=== PATIENT | female | born 1995 | race Caucasian/White ===

== ENCOUNTER → 2020-11-18 03:01 | Outpatient (CLI) | payer OTHER, SELFPAY ==
[2020-11-18 18:14] LABS: SARS-CoV-2 RNA PCR Negative
== END ==
PROVIDERS: Visit Provider Student in an Organized Health Care Education/Training Program
DX: Z01.812 Encounter for preprocedural laboratory examination (principal); Z20.822 Contact with and (suspected) exposure to COVID-19
CPT/HCPCS: C9803; U0003; U0005

== ENCOUNTER 2020-11-21 01:42 | Day surgery (SDC) | payer OTHER, SELFPAY ==
[2020-11-18 09:02] VITALS: BMI 25.7
--- NOTE | 2020-11-21 07:24 | PM.IMHP ---
H&P: HPI History of Present Illness Date/Time: 11/21/20 07:24 25 year old female who presents for hysteroscopic removal of IUD. Pt has had her IUD in for 3 years. Her and her would like to conceive so she presented to the office for removal. Upon attempted removal in office, the IUD strings detached from the device. Pt was then sent for pelvic US which confirmed the IUD within the lower uterine segment. A second attempt at in office removal was also unsuccessful. Decision was made to proceed with operative hysteroscopy. Chief Complaint: IUD contraception in place unsuccessful removal of IUD Review of Systems Cardiovascular: Cardiovascular: Denies chest pain, Denies leg edema, Denies palpitations, Denies dyspnea and Denies dyspnea on exertion Respiratory: Respiratory: Denies cough, Denies dyspnea and Denies dyspnea on exertion Gastrointestinal: Gastrointestinal: Denies abdominal pain, Denies constipation, Denies diarrhea, Denies nausea and Denies vomiting Genitourinary: Genitourinary: Denies hematuria, Denies urinary frequency, Denies dysuria, Denies pelvic pain, Denies urinary incontinence and Denies vaginal discharge Neurologic: Reports system reviewed and no additional complaints, except as documented Psychiatric: Psychiatric: Reports no additional psychiatric complaints Endocrine: Endocrine: Denies palpitations [facility] Past Medical History Medical History (Updated 11/21/20 @ 07:28 by Valerio Dominguez MD) BMI 25.0-25.9,adult Encounter to establish care History of renal stone On residential drug therapy Post depression Routine gynecological examination Social History Social History (Updated 10/25/19 @ 10:56 by Anne Marie Lopez [facility]) Smoking status: Former smoker Second hand tobacco smoke exposure: No Additional smoking assessment comments: OCCASSIONAL IN [employer] Alcohol intake: current Drinks per week: 5 Substance use: never Substance use type: does not use Living arrangements: with family Gender identity (if verbalized by the patient): Female Spiritual care concerns: No Meds Home Medications and Allergies Home Medications Medication Instructions Recorded Confirmed Type ascorbate calcium (vitamin C) 500 500 mg PO DAILY 10/25/19 11/18/20 History mg tablet lactobacillus combination no.8 3 3,000 mmu cells PO DAILY 10/25/19 11/18/20 History billion cell capsule lysine 500 mg tablet 500 mg PO DAILY 10/25/19 11/18/20 History vitamins no.119-iron 1 tablet PO DAILY 10/25/19 11/18/20 History fumarate 29 mg-folic acid 1 mg tablet Allergies Allergy/AdvReac Type Severity Reaction Status Date / Time No Known Allergies Allergy Unknown Verified 11/18/20 09:01 Exam Const: General: no acute distress Eyes: EOM: EOMs intact bilaterally Neck: Neck: supple Thyroid: thyroid normal Chest: Breast/axilla inspection: normal inspection of the breasts Breast/axilla palpation: normal palpation of the breasts, normal palpation of the axillae and no axillary lymphadenopathy Resp: Effort & Inspection: normal respiratory effort Auscultation: clear to auscultation bilaterally Cardio: Rate: regular rate Rhythm: regular rhythm GI: Inspection: non-distended GI Palp: Yes Soft to palpation, No Tenderness to palpation present (GI) and No Guarding due to palpation present (GI) Auscultation: normal bowel sounds : General: No bladder normal to palpation External Female Exam: normal external appearance Speculum Exam - Vagina: normal vaginal discharge and No vaginal bleeding Speculum Exam - Cervix: nontender Bimanual exam- vagina & uterus: No bladder normal to palpation and No Cervical tenderness present OB/external & speculum: No vaginal bleeding Skin: General skin exam: normal color and no rashes or lesions noted Neuro: Cognition (Neuro): normal cognition Speech: normal speech Extrem: General: normal to inspection and no edema Psych: Mental Status: me
--- NOTE | 2020-11-21 07:31 | WPDHPUPDATE1 ---
History and Physical Update Update Date/Time: 11/21/20 07:31 History and Physical has been reviewed, including an updated exam of the patient. There are NO changes in the patient's condition. Risks, benefits, and alternatives have been discussed and questions answered. Patient agrees to proceed with procedure.
[2020-11-21 10:45] VITALS: BP 97/61; PULSE 79; RESP 20; TEMP 36.2; O2SAT 98
[2020-11-21] MEDS: LACTATED RINGERS 1,000 ML 30 ML IV CONT (11:40)
[2020-11-21] MEDS: ACETAMINOPHEN 500 MG TABLET 1000 MG PO (11:46)
[2020-11-21 11:54] LABS: Hemoglobin 13.8 g/dL (12.0-15.0)
--- NOTE | 2020-11-21 12:14 | WPDANESEPPF ---
Anes - Initial Pre Proc Eval Procedure: Operation Date: 11/21/20 12:45 Proposed Procedures p Hysteroscopy, Removal Of Intrauterine Device - Valerio Dominguez MD Date/Time: 11/21/20 12:14 Surgeon: Valerio Dominguez MD Pre Op Diagnosis: strings detached from IUD Patient Data Age: 25 Gender: F Height: 5 ft 5 in Weight: 72.4 kg Last Vital Signs Temp 36.2 C L 11/21/20 10:45 Pulse 79 11/21/20 10:45 Resp 20 11/21/20 10:45 BP 97/61 L 11/21/20 10:45 Pulse Ox 98 11/21/20 10:45 Allergies Allergy/AdvReac Type Severity Reaction Status Date / Time No Known Allergies Allergy Unknown Verified 11/21/20 11:28 Home Medications Medication Instructions Recorded Confirmed Type ascorbate calcium (vitamin C) 500 500 mg PO DAILY 10/25/19 11/21/20 History mg tablet lactobacillus combination no.8 3 3,000 mmu cells PO DAILY 10/25/19 11/21/20 History billion cell capsule lysine 500 mg tablet 500 mg PO DAILY 10/25/19 11/21/20 History vitamins no.119-iron 1 tablet PO DAILY 10/25/19 11/21/20 History fumarate 29 mg-folic acid 1 mg tablet alprazolam 2 mg PO ONCE 11/21/20 11/21/20 History ibuprofen 800 mg PO Q8-10H 11/21/20 11/21/20 History ondansetron HCl 4 mg PO Q6H PRN 11/21/20 11/21/20 History oxycodone-acetaminophen 1 tablet PO Q6H PRN 11/21/20 11/21/20 History Laboratory Tests 11/21/20 11:35 Hgb 13.8 g/dL g/dL (12.0-15.0) Hct 42.0 % % (37.0-47.0) Patient hx anesthesia problems: none Family hx anesthesia problems: none PMFSH Past Medical History Medical History BMI 25.0-25.9,adult Encounter to establish care History of renal stone On assisted drug therapy Post depression Routine gynecological examination Social History Social History Smoking status: Former smoker Second hand tobacco smoke exposure: No Additional smoking assessment comments: OCCASSIONAL IN [employer] Alcohol intake: current Drinks per week: 5 Substance use: never Substance use type: does not use Living arrangements: with family Gender identity (if verbalized by the patient): Female Spiritual care concerns: No Anes - Eval Final PreProcedure Day of Procedure 11/21/20 12:14 Patient weight: normal Heart: regular rate and rhythm Lungs: clear to auscultation Airway: Mallampati scale Last oral intake: >/= 8 hours ASA classification: I Emergent: no Anesthetic plan: proceed Anesthesia type and monitoring: general GIVS and standard monitoring Informed Consent: The patient's anesthetic plan and its attendant risks and benefits were discussed with the patient/family/POA. Questions were solicited and answers provided to the satisfaction of the patient/family/POA.
--- NOTE | 2020-11-21 12:38 | SUR.OPER ---
hysteroscope IN-650 OUT-650
--- NOTE | 2020-11-21 12:43 | PM.PROC ---
Procedure Note - Detailed Date of procedure: 11/21/20 Pre-op diagnosis: strings detached from IUD IUD removal unsuccessful Post-op diagnosis: same Procedure performed: Hysteroscopy Dilation and curettage Description of procedure: The patient was taken to the OR and general anesthesia induced. She was prepped and draped in yellow fin stirrups with support of the back and bilateral lower extremities. I/O catheterization performed of the bladder. Speculum was placed for visualization of the cervix. Infiltration with 1% lidocaine at the 3 and 9 o'clock cervical positions was performed. A single tooth tenaculum was placed on the anterior lip of the cervix. The cervix was dilated with sequential Steffanie dilators. Hysteroscopy, using a normal saline medium, was performed and showed the retained IUD lodged within the endocervical canal. The long arm of the IUD was lodged in the patients left cervix. Hysteroscopic graspers were placed through the operative hysteroscope. The IUD was grasped on the long arm of the IUD. The IUD was removed with gentle pressure and under direct visualization of the hysteroscope. The IUD was examined and was noted to be intact in its entirety. The hysteroscope was re-introduced to do a survery of the endometrial cavity. A endometrial polyp was noted from the left uterine fundus. Sharp uterine curettage was then performed and tissue placed on Telfa. The tenaculum was removed. The left side of the tenaculum site was bleeding. Hemostasis was obtained with direct pressure and silver nitrate. The patient tolerated the procedure well. Sponge, lap, and needle counts were correct. The patient had SCD's on throughout the case for VTE prophylaxis. The patient was taken to the recovery room in stable condition. Anesthesia: GETA Surgeon: Valerio Dominguez MD Estimated blood loss (mL): 50 Urine output (mL): 100 Drains: No Packing: No Pathology: yes (endometrial curettings ) Complications: No immediate complications Condition: stable Disposition: PACU Findings: 650 mL of fluid in and 650 mL of fluid was collected
[2020-11-21 12:49] VITALS: BP 91/50; PULSE 65; RESP 14; O2SAT 99
[2020-11-21 13:20] VITALS: BP 90/61; PULSE 62
[2020-11-21] MEDS: KETOROLAC 30 MG/ML VIAL (*BKC) IV PUSH (13:28)
[2020-11-21 13:40] VITALS: BP 91/55; PULSE 58
== END 2020-11-21 13:58 | disposition home or self-care (01) ==
PROVIDERS: Visit Provider Student in an Organized Health Care Education/Training Program
PROC: 0U5B8ZZ Destruction of Endometrium, Via Natural or Artificial Opening Endoscopic (ICD-10-PCS; CPT 58563; principal; 2020-11-21 12:45)
DX: T83.32XA Displacement of intrauterine contraceptive device, initial encounter (principal); Y83.8 Other surgical procedures as the cause of abnormal reaction of the patient, or of later complication, without mention of misadventure at the time of the procedure; Z87.891 Personal history of nicotine dependence
CPT/HCPCS: 58562; 36415; 85014; 85018; 88305; A9270; J1885; J2250; J3010; J7030; J7120

== ENCOUNTER 2021-02-20 17:40 | Outpatient (CLI) | payer OTHER, SELFPAY ==
[2021-02-20 18:35] LABS: Free T3 2.46 pg/mL (2.18-3.98); Free T4 Free Thyroxine 1.05 ng/dL (0.76-1.46); Thyroid Stimulating Hormone 0.03 uIU/mL (0.36-3.74)
== END 2021-02-20 17:41 | disposition home or self-care (01) ==
LOC: CHSLAB 17:45
PROVIDERS: PCP Family Medicine; Visit Provider Nurse Practitioner Family
DX: R79.89 Other specified abnormal findings of blood chemistry (principal)
CPT/HCPCS: 36415; 84439; 84443; 84481

== ENCOUNTER 2021-03-25 15:08 | Outpatient (CLI) | payer OTHER, SELFPAY ==
[2021-03-28 06:06] LABS: Thyroid Peroxidase Antibodies 68 IU/mL (<9)
== END 2021-03-25 15:09 | disposition home or self-care (01) ==
LOC: CHSLAB 15:12
PROVIDERS: PCP Nurse Practitioner Family; Visit Provider Nurse Practitioner Family
DX: E06.9 Thyroiditis, unspecified (principal)
CPT/HCPCS: 36415; 86376

== ENCOUNTER 2021-03-26 01:13 | Emergency (ER) | payer OTHER, SELFPAY ==
--- NOTE | ~2021-03-26 | US_ITS ---
US OB <=14 wk fetus w TV DATE: 03/26/2021 04:44 INDICATION: Left abdominal pain, vaginal bleeding TECHNIQUE: Real-time imaging and Doppler analysis COMPARISON: None FINDINGS: The uterus measures 10.3 cm height, 4.5 cm AP and 4.6 cm transverse dimension. Endometrial stripe measures up to approximately 10 mm AP dimension. No intrauterine gestational sac is identified . Left ovarian cyst measuring up to 12 mm. There is bilateral blood flow to the ovaries. No pelvic mass lesion or abnormal pelvic fluid collection is detected. IMPRESSION: No intrauterine gestational sac is identified; diffusely prominent up to 10 mm AP dimensi on endometrial stripe in this setting of vaginal bleeding and beta hCG of 234 may represent incomplet e with retained products of conception Reviewed, dictated and finalized at [facility] Reviewed, dictated and finalized at [facility] IMPRESSION: No intrauterine gestational sac is identified; diffusely prominent up to 10 mm AP dimension endometrial stripe in this setting of vaginal bleeding and beta hCG of 234 may represent incomplete with retained products o f conception
[2021-03-26 01:38] VITALS: BP 97/59; PULSE 100; RESP 14; TEMP 36.5; O2SAT 100
--- NOTE | 2021-03-26 02:59 | PC.NURSE ---
rn place pt on monitor and in a gown at this time.
[2021-03-26] MEDS: SODIUM CHLORIDE 0.9% IV 1,000 ML 999 ML IV CONT (03:29)
[2021-03-26 03:37] LABS: Basophils Absolute Auto 0.1 K/mm3 (0.0-0.1); Basophils Percent Auto 0.4 % (0.2-1.2); Eosinophils Absolute Auto 0.2 K/mm3 (0-0.3); Eosinophils Percent Auto 1.9 % (0-4.4); Hematocrit 40.1 % (37.0-47.0); Hemoglobin 13.7 g/dL (12.0-15.0); Immature Granulocyte Absolute 0.04 K/mm3 (0.00-0.031); Immature Granulocyte Percent A 0.3 % (0-0.5); Lymphocytes Absolute Auto 1.62 K/mm3 (0.9-3.2); Lymphocytes Percent Auto 13.8 % (18.3-44.2); Mean Corpuscular HGB Conc 34.2 g/dl (32-36); Mean Corpuscular Hemoglobin 31.4 pg (26-34); Monocytes Absolute Auto 0.7 K/mm3 (0.1-0.6); Monocytes Percent Auto 6.3 % (2.6-8.5); Neutrophils Absolute Auto 9.1 K/mm3 (1.3-6.7); Neutrophils Percent Auto 77.3 % (45.5-73.1); Platelet Count Result 213 k/mm3 (150-375); Red Blood Count 4.36 M/mm3 (4.2-5.4); Red Cell Distribution Width 12.7 % (11.5-14.5); White Blood Count 11.7 K/mm3 (4.5-10.0)
[2021-03-26 03:42] VITALS: BP 102/65; PULSE 82; RESP 20; O2SAT 100
[2021-03-26 03:48] LABS: Alanine Aminotransferase 13 U/L (4-35); Albumin Level 4.4 g/dL (3.5-5.1); Alkaline Phosphatase 39 U/L (38-126); Anion Gap 8 mmol/L (8-16); Aspartate Amino Transferase 21 U/L (14-36); Bilirubin,Total 0.3 mg/dL (0.2-1.3); Blood Urea Nitrogen 10 mg/dL (7-17); Calcium 9.1 mg/dL (8.4-10.2); Carbon Dioxide 24 mmol/L (22-30); Chloride 108 mmol/L (98-107); Estimated CRCL calculation 96 ml/min; Estimated Glomerular Filt Rate > 60; Glucose 110 mg/dL (65-110); Lipase 80 U/L (23-300); Potassium 4.2 mmol/L (3.4-5.0); Sodium 140 mmol/L (137-145)
[2021-03-26 04:04] LABS: Beta HCG Quantitative 234.42 mIU/ML
--- NOTE | 2021-03-26 04:15 | PC.NURSE ---
Pt to US via stretcher at this time.
[2021-03-26 05:24] VITALS: BP 109/63; PULSE 82; RESP 20; O2SAT 100
--- NOTE | 2021-03-26 05:27 | ED.ABDPAIN ---
HPI - Abdominal Pain General Chief Complaint: Abdominal Pain Stated Complaint: vomiting/abd pain Time Seen by Provider: 03/26/21 02:47 Source: patient History of Present Illness HPI narrative: presents with lower abdominal pain and vaginal bleeding. Patient reports she tested positive for home was seen her primary care doctor. She is approximately 6 weeks. So she has had vaginal bleeding over the past few days and believes she is having a miscarriage today her pain was more severe, comes in for evaluation. Pain is crampy, constant most notable on the left lower quadrant no radiation no clear aggravating or alleviating factors. Does report associated nausea and vomiting Related Data Home Medications Medication Instructions Recorded Confirmed No Home Medications 03/26/21 Allergies Allergy/AdvReac Type Severity Reaction Status Date / Time No Known Allergies Allergy Verified 03/26/21 03:29 Review of Systems Review of Systems: CONSTITUTIONAL: Denies fever, chills, or sweats. EYES: Denies visual changes, redness, or discharge. ENT: Denies rhinorrhea, congestion, sore throat, or otalgia. CARDIOVASCULAR: Denies chest pain, palpitations, or edema. RESPIRATORY: Denies cough or dyspnea. GASTROINTESTINAL: Abdominal pain with nausea and vomiting GENITOURINARY: Denies dysuria or hematuria. SKIN: Denies rash or itching. MUSCULOSKELETAL: Denies back pain, joint pain, or myalgia. NEUROLOGIC: Denies headache, numbness, dizziness, or weakness. PSYCHIATRIC: Denies anxiety or depression. All systems reviewed & are unremarkable except as noted in HPI and below PMFSH Social History Social History (Updated 03/26/21 @ 05:28 by Juan Tucker MD) Smoking status: Current every day smoker Exam Narrative: GENERAL: Well-appearing, well-nourished, and in no acute distress. HEAD: Normocephalic, atraumatic. EYES: PERRLA and EOMI. ENT: Nares clear, no rhinorrhea or epistaxis. Mucous membranes moist. NECK: Supple. No masses. No JVD ABDOMEN: Mild tenderness palpation in the lower abdomen most noted in the suprapubic and left lower quadrant area no rebound or guarding soft, nondistended, normal active bowel sounds. EXTREMITIES: Normal range of motion. No edema. SKIN: Warm, dry, no rash. NEURO: No focal deficits. Alert and oriented x3. PSYCH: Normal mood and affect. Course Reevaluation(s) Reevaluation #1: Patient resting comfortably reports feeling improved Date: 03/26/21 Time: 06:13 Vital Signs Vital signs: Vital Signs Temperature 36.5 C 03/26/21 01:38 Pulse Rate 100 03/26/21 01:38 Respiratory Rate 14 03/26/21 01:38 Blood Pressure 97/59 L 03/26/21 01:38 Pulse Oximetry 100 03/26/21 01:38 Temperature 36.5 C 03/26/21 01:38 Pulse Rate 70 03/26/21 06:27 Respiratory Rate 16 03/26/21 06:27 Blood Pressure 103/62 03/26/21 06:27 Pulse Oximetry 100 03/26/21 06:27 MDM - Abdominal Pain MDM Narrative Medical decision making narrative: H&P as above, vss, pt looks clinically well, exam with nonacute abdomen, labs with UA with large amount of blood likely related to vaginal bleeding otherwise clinically unremarkable, img without viable IUP or adnexal masses, additional labs/img considered, symptomatic relief available as needed, on reevaluation pt continues to looks clinically well. Suspect patient is having active miscarriage low concern for significant hemorrhage, torsion, ectopic . Patient directed follow-up with primary care doctor or her OB for repeat hCG testing and trending patient comfortable with outpatient plan. Return precautions given Lab Data Result diagrams: 03/26/21 03:30 03/26/21 03:30 Labs: Lab Results 03/26/21 03/26/21 03/26/21 Range/Units 03:30 03:30 03:30 WBC 11.7 H (4.5-10.0) K/mm3 RBC 4.36 (4.2-5.4) M/mm3 Hgb 13.7 (12.0-15.0) g/dL Hct 40.1 (37.0-47.0) % MCV 92.0 (80-100) fl MCH 31.4 (26-34) pg
[2021-03-26 05:48] LABS: Add Urine Microscopic? YES; Appearance Urine Clear (Clear); Bilirubin Urine Negative (Negative); Blood Urine 3+ (Negative); Color Urine Yellow (Yellow); Glucose Urine UA Negative (Negative); Ketones Urine Negative (Negative); Leukocyte Esterase Ur Trace LEU/UL (Negative); Mucus Urine Rare /lpf; Nitrate Urine Negative (Negative); Protein Urine Negative (Negative); RBC Urine >75 /hpf (0-2); Specific Grav Ur 1.011 (1.001-1.035); Squamous Epithelial Cell Urine Occasional /hpf (Few); Urobilinogen Urine Negative mg/dL (<2.0)
[2021-03-26 06:27] VITALS: BP 103/62; PULSE 70; RESP 16; O2SAT 100
== END 2021-03-26 06:29 | disposition home or self-care (01) ==
PROVIDERS: Emergency Provider Emergency Medicine; PCP Nurse Practitioner Family
DX: O03.9 Complete or unspecified spontaneous abortion without complication (principal); F17.200 Nicotine dependence, unspecified, uncomplicated
CPT/HCPCS: 36415; 76801; 76817; 80053; 81001; 83690; 84702; 85025; 86900; 86901; 96360; 99284; J7030

== ENCOUNTER 2021-05-18 16:02 | Outpatient (CLI) | payer OTHER, SELFPAY ==
[2021-05-18 17:50] LABS: Thyroid Stimulating Hormone Reflex 0.01 u/IU/mL (0.36-3.74)
[2021-05-18 18:10] LABS: Free T4 Free Thyroxine Reflex 1.45 ng/dL (0.76-1.46)
== END 2021-05-18 16:03 | disposition home or self-care (01) ==
LOC: CHSLAB 16:04
PROVIDERS: PCP Nurse Practitioner Family; Visit Provider Nurse Practitioner Family
DX: E06.9 Thyroiditis, unspecified (principal)
CPT/HCPCS: 36415; 84439; 84443

== ENCOUNTER 2021-09-04 10:58 | Outpatient (CLI) | payer OTHER, SELFPAY ==
[2021-09-04 12:14] LABS: Alanine Aminotransferase 24 U/L (14-59); Albumin Level 3.9 g/dL (3.4-5.0); Alkaline Phosphatase 31 U/L (46-116); Anion Gap 10 mmol/L (8-16); Aspartate Amino Transferase 11 U/L (15-37); Bilirubin,Total 0.9 mg/dL (0.00-1.00); Blood Urea Nitrogen 7 mg/dL (7-18); Calcium 9.2 mg/dL (8.5-10.1); Carbon Dioxide 24 mmol/L (21-32); Chloride 104 mmol/L (98-108); Estimated Glomerular Filt Rate > 60; Free T4 Free Thyroxine 1.16 ng/dL (0.76-1.46); Glucose 85 mg/dL (70-99); Osmolality Calculated 283 mOsm/kg (285-295); Potassium 4.3 mmol/L (3.5-5.1); Sodium 138 mmol/L (136-145); Thyroid Stimulating Hormone 1.52 uIU/mL (0.36-3.74); Total Protein 6.7 g/dL (6.4-8.2)
[2021-09-04 16:27] LABS: Free T3 2.63 pg/mL (2.18-3.98)
[2021-09-08 03:52] LABS: Thyroid Peroxidase Antibodies 64 IU/mL (<9)
[2021-09-08 14:28] LABS: Progesterone 21.8 ng/mL (***)
[2021-09-08 19:28] LABS: Testosterone Free 5.6 pg/mL (0.1-6.4); Testosterone Total 54 ng/dL (2-45)
== END 2021-09-04 10:59 | disposition home or self-care (01) ==
LOC: CHSLAB 11:02
PROVIDERS: PCP Nurse Practitioner Family
DX: R94.6 Abnormal results of thyroid function studies (principal); N97.9 Female infertility, unspecified
CPT/HCPCS: 36415; 80053; 84144; 84402; 84403; 84439; 84443; 84481; 86376